=== PATIENT | female | born 1960 | race Caucasian/White ===

== ENCOUNTER 2016-07-28 11:02 | Emergency (ER) | payer BC, OTHER ==
[~2016-07-28] VITALS: Ht 160 cm; Wt 82.1 kg
[2016-07-28 11:07] VITALS: TEMP 36.8; Ht 160 cm; Wt 82.1 kg
[2016-07-28] MEDS ORDERED: BLOOD PRESSURE MED PO (11:57)
[2016-07-28] MEDS ORDERED: CHOLESTEROL MED PO (11:57)
[2016-07-28] MEDS ORDERED: PHEN-488 PO (11:59)
[2016-07-28 13:27] VITALS: BP 112/68; PULSE 79; O2SAT 98
--- NOTE | 2016-07-28 14:24 | EMERGENCY ROOM VISIT NOTE ---
History First contact with patient: 11:43 Chief Complaint: ILLNESS Stated Complaint: SORE THROAT,COUGH,CONGESTION,SNEEZING,ACHY History of Present Illness The patient is a 55 year old female who presents to the Emergency Room with complaints of sore throat, body aches, head congestion cough that started on Thursday. The patient states that she feels hot and cold but did not take her temperature. The patient states that there was a family member after [place] with similar symptoms. She does not know their diagnosis. The patient did not have the influenza vaccine. Review of Systems 6 system review was performed and was negative unless stated otherwise in history of present illness. Past Medical/Surgical History Hypertension, kidney disease, partial hysterectomy Social History Smoking Status: Never Smoker Alcohol Use: occasionally Drug Use: none Marital Status: single Housing Status: lives alone Occupation Status: employed Current/Historical Medications Scheduled Phenylephrine W/ Dm-Gg (Tussin Cf), 10 ML PO DAILY [Blood Pressure Med], Unknown Dose PO DAILY [Cholesterol Med], Unknown Dose PO DAILY Allergies Coded Allergies: Penicillins (Unverified Allergy, Mild, 07/28/16) Sulfa Drugs (Unverified Allergy, Mild, 07/28/16) Uncoded Allergies: N (Allergy, Unknown, 09/08/02) NKA (Allergy, Unknown, 09/08/02) Physical Exam Vital Signs Date Time Temp Pulse Resp B/P Pulse Ox O2 Delivery O2 Flow Rate FiO2 07/28/16 13:27 79 18 112/68 98 Room Air 07/28/16 11:07 36.8 103 18 124/76 97 Room Air Physical Exam PHYSICAL EXAM: Vital Signs were reviewed: Temperature 36.8, blood pressure 124/ 76, pulse 103, respiratory rate 18 Reviewed Nurse's notes and agree. Oxygen saturation is 97 % on room air which is normal . GENERAL: 55-year-old female appears in no acute distress. MENTAL STATUS: Alert, oriented, coherent. EARS: Canals clear. TMs good light reflex, no erythema or fluid level noted. NOSE: Nasal mucosa with moderate erythema engorgement. PHARYNX: Moderate erythema, no edema noted. No exudate noted. Airway is adequate. NECK: Supple, non-tender. No lymphadenopathy noted. LUNGS: Clear to auscultation without wheezes rales or rhonchi. CARDIAC: Regular rate and rhythm without murmur. SKIN: No rashes noted. Medical Decision & Procedures Laboratory Results Test 07/28/16 13:25 Influenza Type A Antigen Neg for Influ A (NEG) Influenza Type B Antigen Neg for Influ B (NEG) ED Course The patient was evaluated. Rapid strep was negative. Culture is pending. Rapid influenza was negative for influenza A and influenza B. The patient was informed of the findings and discharged home in stable condition. Medical Decision Differential diagnosis include strep pharyngitis, viral pharyngitis, URI, influenza, pneumonia Impression Primary Impression: Pharyngitis Additional Impression: URI (upper respiratory infection) Departure Information Dispostion Home / Self-Care Condition GOOD Referrals No Doctor, Assigned (PCP) Forms HOME CARE DOCUMENTATION FORM, IMPORTANT VISIT INFORMATION, WORK / SCHOOL INSTRUCTIONS Patient Instructions A Signature Page, Common Cold - [facility], [facility], Sore Throat Additional Instructions Recommend [id number] symptomatic treatment. Follow sore throat handouts instructions. Call in 24 hours for throat culture results. Push fluids, rest. If symptoms persist, follow-up with your family physician.
== END 2016-07-28 14:32 | disposition home or self-care (01) ==
LOC: C.EDB 11:03 → C.EDD 14:32
DX: J02.9 Acute pharyngitis, unspecified (principal); I10 Essential (primary) hypertension